=== PATIENT | male | born 1950 | race Caucasian/White ===

== ENCOUNTER 2016-12-28 16:48 | Inpatient (IN) | payer OTHER ==
[~2016-12-28] VITALS: Ht 177.8 cm; Wt 110.1 kg
[~2016-12-28 16:48] MED LIST: ROXICODONE5 MG PO; ZOFRAN4 MG PO
[2016-12-28 17:46] LABS: HEMATOCRIT 38.3 % (38.0-50.0); MCH 36.8 PG (29.0-34.0); MCHC 33.9 G/DL (30.0-36.0); MCV 108.5 FL (86-99); MEAN PLAT.VOLUME 10.9 uM^3 (9.0-12.4); PLATELET COUNT 149 K/uL (156-360); RBC DIS.WIDTH-CV 14.7 % (11.8-14.6); RBC DIS.WIDTH-SD 58.9 % (39-53); RED BLOOD COUNT 3.53 M/uL (4.00-5.50); WHITE BLOOD COUNT 5.9 K/uL (4.1-10.2)
[2016-12-28 17:55] LABS: CHLORIDE 107 mEq/L (99-109); POTASSIUM 4.1 mEq/L (3.7-5.4); SODIUM 140 mEq/L (136-147)
[2016-12-28 17:56] LABS: GLUCOSE 108 mg/dL (70-99)
[2016-12-28 17:58] LABS: ANION GAP 9 MEQ/L (2-14)
[2016-12-28 17:59] LABS: SERUM ETHYL ALCOHOL < 10 mg/dL
[2016-12-28 18:00] LABS: GFR ESTIMATE (CALCULATED) > 59 mL/min/
[2016-12-28 18:01] LABS: UREA NITROGEN (BUN) 18 mg/dL (9-23)
[2016-12-28 20:26] LABS: AMPHETAMINE NEGATIVE (500 ng/mL); BARBITURATES NEGATIVE (200 ng/mL); BENZODIAZEPINES NEGATIVE (150 ng/mL); COCAINE NEGATIVE (150 ng/mL); METHADONE NEGATIVE (200 ng/mL); METHAMPHETAMINE NEGATIVE (500 ng/mL); OPIATES (MORPHINE) NEGATIVE (100 ng/mL); OXYCODONE NEGATIVE (100 ng/mL); PHENCYCLIDINE NEGATIVE (25 ng/mL); PROPOXYPHENE NEGATIVE (300 ng/mL); THC CANNABINOIDS NEGATIVE (50 ng/mL); TRICYCLIC ANTIDEPRESSANTS NEGATIVE (300 ng/mL)
[2016-12-28 20:27] LABS: INTERNAL CONTROLS VALID? YES
[2016-12-29 08:03] VITALS: BP 131/74
== END 2016-12-29 17:48 | disposition home or self-care (01) | DRG 881 ==
LOC: EME 16:48 → EDOF 20:04 → ENRESERV 20:55 → 1WEST 21:37
PROVIDERS: Emergency Medicine
DX: F43.21 Adjustment disorder with depressed mood (principal); E78.5 Hyperlipidemia, unspecified; R45.851 Suicidal ideations; I10 Essential (primary) hypertension
CPT/HCPCS: 80048; 85027; 90837; 99281; 99284; G0480